=== PATIENT | female | born 1990 | race Caucasian/White ===

== ENCOUNTER 2016-07-31 06:28 | Inpatient (IN) | payer BC ==
[~2016-07-31] VITALS: Ht 167.6 cm; Wt 113.9 kg
[~2016-07-31 06:28] MED LIST: CLOBETASOL PROP60 GM TP; JUNEL1 EACH PO; MIRENA52 MG IY; MOTRIN800 MG PO; NOHOMEMEDS; ONE DAILY WOME1 EACH PO; PERCOCET 5/31 TABLET PO; PRENATAL TABLE1 EAC3 PO
[2016-07-31 07:47] VITALS: BP 109/75
[2016-07-31 08:02] VITALS: BP 109/75
[2016-07-31 08:25] LABS: POINT-OF-CARE METER ID UU14174212
[2016-07-31 11:58] VITALS: BP 137/84
[2016-07-31 15:25] VITALS: BP 144/89
[2016-07-31 17:59] LABS: POINT-OF-CARE METER ID UU14162508
[2016-07-31 19:48] VITALS: BP 129/77
[2016-07-31 23:05] VITALS: BP 134/78
[2016-08-01 03:40] VITALS: BP 131/78
[2016-08-01 06:57] LABS: HEMATOCRIT 37.5 % (36.0-46.0); MCH 25.7 PG (29.0-34.0); MCHC 31.2 G/DL (30.0-36.0); MCV 82.2 FL (83-99); MEAN PLAT.VOLUME 11.1 uM^3 (9.5-12.4); PLATELET COUNT 239 K/uL (156-360); RBC DIS.WIDTH-CV 13.5 % (11.8-14.6); RBC DIS.WIDTH-SD 40.6 % (39-53); RED BLOOD COUNT 4.56 M/uL (3.80-5.20); WHITE BLOOD COUNT 12.2 K/uL (4.1-10.2)
[2016-08-01 07:20] VITALS: BP 129/73
[2016-08-01 07:21] LABS: ANION GAP 9 MEQ/L (2-14); CHLORIDE 101 MEQ/L (99-109); GFR ESTIMATE (CALCULATED) > 59 mL/min/; GLUCOSE 95 mg/dL (70-99); MAGNESIUM 1.9 mg/dl (1.3-2.7); SAMPLE HEMOLYSIS CHECK 0; SAMPLE ICTERIC CHECK 0; SAMPLE LIPEMIA CHECK 0; SODIUM 135 MEQ/L (136-147); UREA NITROGEN (BUN) 10 mg/dL (9-23)
[2016-08-01] MEDS ORDERED: PERCOCET 5/31 TABLET PO (08:37)
[2016-08-01 09:34] VITALS: BP 126/77
== END 2016-08-01 10:40 | disposition home or self-care (01) | DRG 621 ==
LOC: 2SOUTH 06:28 → 2EAST 11:54 → 2SOUTH 14:43 → 2EAST 08-01 10:40
PROVIDERS: Surgery
PROC: 0DB64Z3 Excision of Stomach, Percutaneous Endoscopic Approach, Vertical (ICD-10-PCS; principal; 2016-07-31)
DX: E66.01 Morbid (severe) obesity due to excess calories (principal); Z68.41 Body mass index [BMI] 40.0-44.9, adult; R53.81 Other malaise; R53.83 Other fatigue
CPT/HCPCS: 80048; 82948; 83735; 84100; 85027; C9113; J0330; J0690; J1100; J1170; J1644; J1650; J1815; J2250; J2270; J2405; J2710; J2765; J3010; J3480; J7120; S0020

== ENCOUNTER → 2016-09-04 | Outpatient (CLI) | payer BC | END | disposition home or self-care (01) | LOC: RAD 10:45 | DX: K80.20 Calculus of gallbladder without cholecystitis without obstruction (principal) | CPT/HCPCS: 74020; 74150 ==

== ENCOUNTER 2016-09-23 06:05 | Day surgery (SDC) | payer BC ==
[~2016-09-23] VITALS: Ht 165.1 cm; Wt 98.9 kg
[2016-09-23 06:55] LABS: POINT-OF-CARE METER ID UU14174212
[2016-09-23 07:41] VITALS: BP 115/75
[2016-09-23 11:05] VITALS: BP 133/74
[2016-09-23 12:03] VITALS: BP 115/58
== END 2016-09-23 12:15 | disposition home or self-care (01) ==
LOC: SDC 06:05
PROVIDERS: Surgery
PROC: 0FT44ZZ Resection of Gallbladder, Percutaneous Endoscopic Approach (ICD-10-PCS; principal; 2016-09-23)
DX: K80.10 Calculus of gallbladder with chronic cholecystitis without obstruction (principal); E66.01 Morbid (severe) obesity due to excess calories; Z68.35 Body mass index [BMI] 35.0-35.9, adult; Z98.84 Bariatric surgery status; K59.00 Constipation, unspecified
CPT/HCPCS: 82948; 88304; J0131; J0330; J0690; J1100; J1644; J2250; J2270; J2405; J2710; J3010; S0020

== ENCOUNTER 2017-08-12 14:53 | Emergency (ER) | payer BC ==
[~2017-08-12] VITALS: Ht 170.2 cm; Wt 85.2 kg
[2017-08-12 16:11] LABS: HEMATOCRIT 30.5 % (36.0-46.0); MCH 30.1 PG (29.0-34.0); MCHC 33.1 G/DL (30.0-36.0); MCV 90.8 FL (83-99); PLATELET COUNT 265 K/uL (156-360)
[2017-08-12 16:13] LABS: HEMOGLOBIN 10.1 G/DL (11.9-15.5); RED BLOOD COUNT 3.36 M/uL (3.80-5.20)
[2017-08-12 16:22] LABS: ALBUMIN 3.6 g/dL (3.2-4.8); CHLORIDE 100 mEq/L (99-109); POTASSIUM 3.5 mEq/L (3.7-5.4); SODIUM 137 mEq/L (136-147)
[2017-08-12 16:25] LABS: GLUCOSE 87 mg/dL (70-99); TOTAL PROTEIN 7.5 g/dL (6.4-8.3)
[2017-08-12 16:27] LABS: TOTAL BILIRUBIN 1.4 mg/dL (0.0-1.0)
[2017-08-12 16:28] LABS: ALKALINE PHOSPHATASE 72 IU/L (3-129); CREATININE 0.7 mg/dL (0.6-1.3); GFR ESTIMATE (CALCULATED) > 59 mL/min/
[2017-08-12 16:29] LABS: UREA NITROGEN (BUN) 8 mg/dL (9-23)
[2017-08-12 16:30] LABS: AST (GOT) 14 IU/L (2-34)
[2017-08-12 16:31] LABS: ALT (GPT) 9 IU/L (3-49)
[2017-08-12 16:32] LABS: LIPASE 63 U/L (1.0-51.0)
[2017-08-12 17:23] LABS: APPEARANCE CLEAR ((CLEAR)); BILIRUBIN NEGATIVE; BLOOD SMALL; COLOR YELLOW ((YELLOW)); GLUCOSE (STRIP) NEGATIVE; KETONES NEGATIVE; LEUKOCYTES SMALL; NITRITE NEGATIVE; PROTEIN (STRIP) NEGATIVE; UROBILINOGEN 0.2 MG/DL (0.2-1.0)
[2017-08-12 17:27] LABS: BACTERIA 2+ /HPF; EPITHELIAL CELLS 1+ /HPF; MUCUS TRACE /LPF; RED BLOOD CELLS 0-5 /HPF (0-5); UCUL ADDED? YES
[2017-08-12] MEDS ORDERED: BACTRIM,SEPT1 TABLET PO (18:02)
[2017-08-12 18:27] VITALS: BP 110/72
== END 2017-08-12 18:29 | disposition home or self-care (01) ==
LOC: EME 14:53
PROVIDERS: Physician Assistant
DX: G89.18 Other acute postprocedural pain (principal); K91.870 Postprocedural hematoma of a digestive system organ or structure following a digestive system procedure; N39.0 Urinary tract infection, site not specified; Y83.8 Other surgical procedures as the cause of abnormal reaction of the patient, or of later complication, without mention of misadventure at the time of the procedure; Z98.890 Other specified postprocedural states; Z90.49 Acquired absence of other specified parts of digestive tract
CPT/HCPCS: 74177; 80053; 81003; 83690; 85027; 87086; 99281; 99284; J3010; J7030